=== PATIENT | male | born 1985 | race African-American/Black ===

== ENCOUNTER 2019-07-21 13:38 | Emergency (ER) | payer BC ==
[2019-07-21] MEDS ORDERED: KETOROLAC TROMETHAMINE 60 MG/2 ML SDV IM ONE (13:56)
[2019-07-21 14:25] LABS: APPEARANCE,URINE CLEAR; BILIRUBIN,URINE NEGATIVE (NEGATIVE); COLOR,URINE YELLOW; GLUCOSE, URINE NEGATIVE (NEGATIVE); KETONES,URINE NEGATIVE (NEGATIVE); LEUKOCYTE ESTERASE,URINE NEGATIVE (NEGATIVE); NITRITE,URINE NEGATIVE (NEGATIVE); PROTEIN,URINE NEGATIVE (NEGATIVE); URINE SPECIFIC GRAVITY 1.019
--- NOTE | 2019-07-21 15:29 | ER Document Report ---
ED General - General Chief Complaint: Back Pain Stated Complaint: LOWER BACK PAIN Time Seen by Provider: 07/21/19 14:20 TRAVEL OUTSIDE OF THE [place] IN LAST 30 DAYS: No - HPI Notes: 34-year-old male presents with left-sided back pain. Patient describes waking up this morning with pain, relatively severe, gradual onset last day but markedly more severe this morning. Worse with twisting and bending over. No numbness or tingling. No bowel or bladder dysfunction. No history of renal colic. Moderate intensity, nonradiating. No other modifying factors, no other associated symptoms, no other provocative or palliative factors. - Related Data Allergies/Adverse Reactions: No Known Allergies Allergy (Unverified 07/21/19 13:50) Past Medical History - Social History Smoking Status: Current Every Day Smoker Chew tobacco use (# tins/day): No Frequency of alcohol use: beer every other day Drug Abuse: None Family History: Reviewed & Not Pertinent Patient has suicidal ideation: No Patient has homicidal ideation: No - Medical History Medical History: Negative Review of Systems - Review of Systems Notes: Denies any bowel or bladder dysfunction, no numbness or tingling. No dysuria frequency urgency. No fever, chills or sweats. Physical Exam - Vital signs Vitals: Temp Pulse Resp BP Pulse Ox 98.0 F 102 H 18 182/125 H 97 07/21/19 13:42 07/21/19 13:42 07/21/19 13:42 07/21/19 13:42 07/21/19 13:42 - Notes Notes: General: Well devloped, no acute distress. HEENT: Normocephalic, atraumatic. Pupils equal round reactive to light. Mucosa moist. No JVD. Chest: No trauma, normal excursion. Respiratory: Good air exchange, normal excursion. Cardiac: Regular rhythm Abdomen: Soft, benign. Nondistended. Back: No asymmetry or gross abnormality. Left para lateral lumbar tenderness and spasm. Motor: Grossly normal power and tone. Normal reflexes. Neurologic: Alert, nonfocal. Normal sensation bilateral lower 70s. Vascular: Well perfused Skin: No petechiae or purpura Course - Re-evaluation Re-evalutation: 07/21/19 15:25 Patient was evaluated by the [facility] provider prior to my evaluation. Studies / interventions have been ordered by this provider and may still be pending. Recent symptoms are very consistent with mechanical muscular skeletal back pain, no high risk features. There is no history of malignancy, no history of bowel or bladder dysfunction. No fever or constitutional symptoms. No history of IV drug abuse. Remarkable. Patient was given Toradol prior to my evaluation. Will be discharged home with prescription for diclofenac, Flexeril, outpatient follow- up. 07/21/19 15:29 Recheck blood pressure shows improvement, 150/90. Blood pressure to be rechecked over the next 24 to 48 hours. Likely secondary to pain. - Vital Signs Vital signs: Temp Pulse Resp BP Pulse Ox 98.0 F 102 H 18 182/125 H 97 07/21/19 13:42 07/21/19 13:42 07/21/19 13:42 07/21/19 13:42 07/21/19 13:42 - Laboratory Laboratory results interpreted by me: 07/21/19 14:08 Urine Urobilinogen 2.0 H Discharge - Discharge Clinical Impression: Back pain Qualifiers: Back pain location: low back pain Chronicity: acute Back pain laterality: left Sciatica presence: without sciatica Qualified Code(s): M54.5 - Low back pain Condition: Stable Disposition: HOME, SELF-CARE Instructions: Low Back Pain ([facility]), High Blood Pressure ([facility]) Additional Instructions: Follow-up with your primary care doctor this week if persistent pain. You will need to have your blood pressure rechecked in 24 to 48 hours. Prescriptions: Diclofenac Sodium 75 mg PO Q12 7 Days #14 tablet. Cyclobenzaprine HCl [Flexeril 10 mg Tablet] 10 mg PO TIDP PRN #15 tab NS PRN Reason:
[2019-07-21 16:00] VITALS: BP 170/100
== END 2019-07-21 16:00 | disposition home or self-care (01) ==
LOC: ER 13:38
DX: M54.5 Low back pain (principal); F17.200 Nicotine dependence, unspecified, uncomplicated
CPT/HCPCS: 99283; 96372; 81001; J1885